=== PATIENT | female | born 1980 | race Caucasian/White ===

== ENCOUNTER 2016-11-24 22:31 | Emergency (ER) | payer SELFPAY ==
[~2016-11-24] VITALS: Ht 162.6 cm; Wt 100.9 kg
[~2016-11-24 22:31] MED LIST: AMOXICILLIN 50500 MG PO; CEFTIN500 MG PO; NORCO 325 MG-51 TAB PO; PHENERGAN 25 TA25 MG PO; ZOFRAN ODT4 MG PO
[2016-11-24 22:51] VITALS: TEMP 98.8
[2016-11-24] MEDS ORDERED: AMOXICILLIN875 MG PO (22:56)
[2016-11-24 23:58] VITALS: BP 140/80; PULSE 80
== END 2016-11-25 00:03 | disposition home or self-care (01) ==
LOC: COL.ER 22:31
DX: J03.90 Acute tonsillitis, unspecified (principal)